=== PATIENT | male | born 1965 | race Caucasian/White ===

== ENCOUNTER 2018-05-06 20:49 | Inpatient (IN) | payer OTHER ==
[~2018-05-06] VITALS: Ht 165.1 cm; Wt 84.4 kg
[~2018-05-06 20:49] MED LIST: AZIT250T13 PO; Atenolol PO; Lisinopril PO; PRED50TA PO
--- NOTE | 2018-05-06 21:00 | NUR ---
EKG out of department at time of arrival, delayed due to transport.
--- NOTE | 2018-05-06 21:13 | NUR ---
RT CALLED FOR PATIENT BREATHING TX
[2018-05-06] MEDS ORDERED: NITROGLYCERIN OINT 1 GM PACKET TP ONE ×2 (21:15→21:22)
[2018-05-06] MEDS ORDERED: ASPIRIN 81 MG TAB.CHEW PO ONE (21:15)
[2018-05-06] MEDS ORDERED: methylPREDNISolone SOD SUCC 125 MG/2 ML VIAL IV ONE (21:15)
[2018-05-06] MEDS ORDERED: IPRATROPIUM BROMIDE 0.5 MG/2.5 ML NEBU NEB ONE (21:15)
[2018-05-06] MEDS ORDERED: ALBUTEROL SULFATE 2.5 MG/3 ML NEBU NEB ONE (21:15)
[2018-05-06] MEDS ORDERED: methylPREDNISolone SOD SUCC 125 MG/2 ML VIAL ONE (21:16)
[2018-05-06] MEDS ORDERED: ASPIRIN 81 MG TAB.CHEW ONE (21:16)
--- NOTE | 2018-05-06 21:20 | NUR ---
rt AT BEDSIDE FOR BREATHING TX ADMINISTRATION.
[2018-05-06] MEDS ORDERED: IPRATROPIUM BROMIDE 0.5 MG/2.5 ML NEBU ONE (21:23)
[2018-05-06] MEDS ORDERED: ALBUTEROL SULFATE 2.5 MG/3 ML NEBU ONE (21:23)
[2018-05-06 21:30] LABS: BASOPHILS # (AUTO) 0.1 K/uL (0.0-8.0); BASOPHILS % (AUTO) 1.5 % (0.0-2.0); EOSINOPHILS # (AUTO) 0.1 K/uL (0.0-0.7); EOSINOPHILS % (AUTO) 1.5 % (0.0-7.0); HEMATOCRIT 38.6 % (36.7-47.1); HEMOGLOBIN 12.3 g/dL (12.5-16.3); LYMPHOCYTES # (AUTO) 1.6 K/uL (20.0-40.0); LYMPHOCYTES % (AUTO) 18.4 % (20.5-51.5); MEAN CORPUSCULAR HEMOGLOBIN 27.2 uug (23.8-33.4); MEAN CORPUSCULAR HGB CONC 32 g/dL (32.5-36.3); MEAN CORPUSCULAR VOLUME 85.7 fL (73.0-96.2); MONOCYTES # (AUTO) 1.1 K/uL (2.0-10.0); MONOCYTES % (AUTO) 12.4 % (0.0-11.0); NEUTROPHILS # (AUTO) 5.9 K/uL (1.8-8.9); NEUTROPHILS % (AUTO) 66.2 % (38.5-71.5); PLATELET COUNT (AUTO) 336 K/uL (152-348); WHITE BLOOD COUNT (AUTO) 8.9 K/uL (3.6-10.2)
[2018-05-06 21:37] LABS: CREATININE 1.6 mg/dL (0.6-1.3); POTASSIUM 3.8 mmol/L (3.5-5.1)
--- NOTE | 2018-05-06 21:51 | NUR ---
RT AT BEDSIDE FOR PATIENT REEVALUATION
--- NOTE | 2018-05-06 21:52 | NUR ---
PANEL CALL PLACED TO [facility]. DR AHN IS SPECIALIST FIELD ENGINEER [facility], AWAITING CALL BACK FROM PANEL
--- NOTE | 2018-05-06 21:56 | NUR ---
ER ON PHONE WITH DR AHN. Pt. admitted to TELEMETRY , under care of Dr. AHN. Belongs List completed
--- NOTE | 2018-05-06 21:58 | NUR ---
REPORT GIVEN TO DANA GONCALVES ON TELEMETRY
--- NOTE | 2018-05-06 22:05 | NUR ---
Received patient from ER via gurney. Escorted safely to the shower. Female friend at bedside. SOB upon exertion. Lungs sounds diminished. Skin check done, noted multiple scabs in bilateral FA and top of the head. Patient escorted back to the room, O2 2L NC put back on. Vital signs stable, O2 sat is 98%. TELE Sinus tach at 108. MD aware. No new orders. Belongings list done, found Marijuana and drug paraphernalia on the plastic bag. Charge nurse placed plastic bag with contents on the contraband cabinet. Found salazar in the pocket of his jeans. Remains at bedside. Noted on the belongings list. Safety initiated. Call light within reach. Will closely monitor.
--- NOTE | 2018-05-06 22:05 | NUR ---
Money at bedside, inside his black pants in the belongings bag. Co-signed with WHITLEY Lai. Patient refused to have the money kept at locker. He wants it at bedside. Informed Charge Nurse Cindy.
--- NOTE | 2018-05-06 22:09 | NUR ---
PATIENT TRANSFERED TO ROOM 203 AT THIS TIME.
[2018-05-06] MEDS: CLOPIDOGREL 75 MG TABLET PO SCH (22:10)
[2018-05-06] MEDS ORDERED: CLOPIDOGREL 75 MG TABLET ONE (22:12)
[2018-05-06] MEDS ORDERED: HYDROCODONE/APAP 5-325MG TABLET PO PRN (22:15)
[2018-05-06] MEDS ORDERED: MORPHINE SULFATE 2 MG/1 ML DISP.SYRIN IV PRN (22:15)
[2018-05-06] MEDS ORDERED: Z GUARD REMEDY PASTE 57 GM TUBE TOP PRN (22:15)
[2018-05-06] MEDS ORDERED: ONDANSETRON 4 MG/2 ML VIAL IV PRN (22:15)
[2018-05-06] MEDS: NITROGLYCERIN OINT 1 GM PACKET TP SCH (22:15)
[2018-05-06] MEDS ORDERED: ACETAMINOPHEN 325 MG TABLET PO PRN (22:15)
[2018-05-06] MEDS ORDERED: ZOLPIDEM 5 MG TABLET PO PRN (22:15)
[2018-05-06] MEDS ORDERED: MAGNESIUM HYDROXIDE 30 ML LIQUID UDC PO PRN (22:15)
--- NOTE | 2018-05-06 22:15 | NUR ---
Held Nitro-Bid 0.5 mg. was given in ER, too close to give another dose. BP is stable. Denies CP at the moment. Will closely monitor.
[2018-05-06] MEDS ORDERED: IV NS 1000 ML 1,000 ML IV PRN (22:17)
[2018-05-06 23:06] VITALS: BP 131/88
--- NOTE | 2018-05-06 23:15 | NUR ---
Patient is Sinus Tach on the monitor highest being 137. Right now it is 108. MD aware. No new orders. Will continue to monitor.
[2018-05-06] MEDS: ENOXAPARIN SODIUM 40 MG/0.4 ML DISP.SYRIN SQ SCH (23:46)
[2018-05-07] MEDS: LORAZEPAM 0.5 MG TABLET PO PRN ×2 (01:43→20:19)
--- NOTE | 2018-05-07 01:48 | NUR ---
Patient appears restless. No c/o SOB or Chest pain. Ativan given. Will closely monitor.
[2018-05-07] MEDS: NITROGLYCERIN OINT 1 GM PACKET TP SCH ×2 (01:56→20:20)
--- NOTE | 2018-05-07 02:01 | NUR ---
Patient c/o CP. BP was elevated at 158/109 HR 108. D/W charge nurse Cindy. Gave unscheduled nitro on the left CW. Will continue to monitor.
[2018-05-07] MEDS: methylPREDNISolone SOD SUCC 125 MG/2 ML VIAL IV SCH ×4 (03:02→20:20)
[2018-05-07 04:00] VITALS: BP 144/102
--- NOTE | 2018-05-07 04:49 | NUR ---
Patient's BP elevated at 144/102 TELE at 99. COILER OPERATOR aware, new orders in place. Will continue to monitor.
[2018-05-07] MEDS ORDERED: LISINOPRIL 20 MG TABLET PO SCH (05:00)
[2018-05-07] MEDS ORDERED: LISINOPRIL 20 MG TABLET PO ONE (05:00)
[2018-05-07 05:01] LABS: CREATININE 1.7 mg/dL (0.6-1.3); POTASSIUM 3.9 mmol/L (3.5-5.1)
--- NOTE | 2018-05-07 05:35 | NUR ---
Patient slept intermittently t/o shift. BP was elevated. SUPERVISOR SALVAGE aware, new orders executed. TELE SR ST at 95-105. Patient is on O2 2L NC. IVF infusing on the left AC. Safety and comfort measures maintained t/o shift. All meds given as ordered. All needs met. Will continue to monitor BP.
[2018-05-07 06:43] VITALS: BP 120/82
[2018-05-07 06:47] LABS: BASOPHILS % (AUTO) 0.5 % (0.0-2.0); EOSINOPHILS % (AUTO) 0.1 % (0.0-7.0); HEMATOCRIT 43.7 % (36.7-47.1); HEMOGLOBIN 13.9 g/dL (12.5-16.3); LYMPHOCYTES # (AUTO) 0.7 K/uL (20.0-40.0); MEAN CORPUSCULAR HEMOGLOBIN 28.1 uug (23.8-33.4); MEAN CORPUSCULAR HGB CONC 32 g/dL (32.5-36.3); MEAN CORPUSCULAR VOLUME 88.1 fL (73.0-96.2); MONOCYTES # (AUTO) 0.2 K/uL (2.0-10.0); MONOCYTES % (AUTO) 2.3 % (0.0-11.0); NEUTROPHILS # (AUTO) 6.6 K/uL (1.8-8.9); NEUTROPHILS % (AUTO) 88.1 % (38.5-71.5); PLATELET COUNT (AUTO) 323 K/uL (152-348); RED BLOOD CELL COUNT(AUTO) 4.96 MIL/uL (4.06-5.63); WHITE BLOOD COUNT (AUTO) 7.5 K/uL (3.6-10.2)
[2018-05-07] MEDS: CLOPIDOGREL 75 MG TABLET PO SCH (08:06)
[2018-05-07] MEDS: FUROSEMIDE 40 MG/4 ML VIAL IV SCH ×2 (08:56→20:20)
[2018-05-07] MEDS ORDERED: ASPIRIN 325 MG TABLET PO SCH (09:00)
[2018-05-07] MEDS ORDERED: ATENOLOL 25 MG PO SCH (09:00)
[2018-05-07] MEDS ORDERED: ATENOLOL 25 MG TABLET PO SCH (09:00)
--- NOTE | 2018-05-07 09:06 | NUR ---
RESTING IN BED WITH SLIGHT SOB ON EXERTION, AND WHEEZING O2 AT 2L NC SATURATING 95%. DENIES CHEST PAIN. SR/ST ON MONITOR. CLOSELY OBSERVE.
--- NOTE | 2018-05-07 09:06 | NUR ---
SEEN BY DR AHN WITH ORDERS. SEE NOTES
--- NOTE | 2018-05-07 09:59 | NUR ---
PATIENT C/O SOB CHECKED O2 SAT WITH 2L 97%, SR ON MONITOR
[2018-05-07 11:21] VITALS: BP 136/89
[2018-05-07] MEDS ORDERED: hydrALAZINE HCL 25 MG TABLET PO PRN (14:30)
--- NOTE | 2018-05-07 15:40 | NUR ---
RESTING COMFORTABLY NO SS OF PAIN OR DISTRESS, SR ON MONITOR
[2018-05-07 16:44] VITALS: BP 124/90
[2018-05-07 19:00] VITALS: BP 118/84
--- NOTE | 2018-05-07 20:00 | NUR ---
Sitting up in bed and complaining of discomfort and shortness of breath, vital signs 118/84, 87 hr, 19 rr, temp 98.0, 97% spO2 2L NC. Relaxation techniques provided. Tele monitor sinus rhythm. Safe environment implemented at all times. Call light within reach
[2018-05-07] MEDS: ENOXAPARIN SODIUM 40 MG/0.4 ML DISP.SYRIN SQ SCH (20:19)
--- NOTE | 2018-05-07 21:00 | NUR ---
Received orders for transfer to [facility]. Pt made aware of plan of care and transfer form signed. No s/s of acute distress noted at this time. Will continue to monitor closely
[2018-05-07 21:54] VITALS: BP 120/82
--- NOTE | 2018-05-07 22:30 | NUR ---
Report called to receiving nurse at [facility]. Pt going to room 662 bed 1
[2018-05-08] VITALS: BP 100/61
--- NOTE | 2018-05-08 00:05 | NUR ---
Pt discharged via ambulance to [facility] in a stable condition. No s/s of acute distress observed, denies discomfort at this time. Belongings returned. Report given to paramedics
[2018-05-08] MEDS ORDERED: ASPIRIN 325 MG TABLET PO SCH (09:00)
[2018-05-08] MEDS ORDERED: ASPIRIN 81 MG TAB.CHEW PO SCH (09:00)
[2018-05-08] MEDS ORDERED: LISINOPRIL 20 MG TABLET PO SCH (09:00)
== END 2018-05-08 00:20 | disposition short-term general hospital (02) | DRG 140 ==
LOC: ER 20:50 → TELE 22:00
PROVIDERS: ADMIT Internal Medicine; ATTEND Internal Medicine
DX: J44.1 Chronic obstructive pulmonary disease with (acute) exacerbation (principal); J96.01 Acute respiratory failure with hypoxia; I21.A1 Myocardial infarction type 2; I13.0 Hypertensive heart and chronic kidney disease with heart failure and stage 1 through stage 4 chronic kidney disease, or unspecified chronic kidney disease; N18.9 Chronic kidney disease, unspecified; N17.0 Acute kidney failure with tubular necrosis; I50.23 Acute on chronic systolic (congestive) heart failure; Z59.0 Homelessness; I25.10 Atherosclerotic heart disease of native coronary artery without angina pectoris; Z95.5 Presence of coronary angioplasty implant and graft; F20.9 Schizophrenia, unspecified; I25.5 Ischemic cardiomyopathy; Z87.891 Personal history of nicotine dependence; I25.2 Old myocardial infarction; Z79.52 Long term (current) use of systemic steroids; G47.33 Obstructive sleep apnea (adult) (pediatric)
CPT/HCPCS: 36415; 70030-TC; 71045; 76770; 83735; 84100; 85025; 85730; 93005; 93307; A4663; J1650; J1940; J2930; J3590; J7030